=== PATIENT | female | born 2000 | race African-American/Black ===

== ENCOUNTER → 2019-07-29 | Outpatient (CLI) | payer OTHER ==
--- NOTE | 2019-07-29 09:23 | Diagnostic Imaging Report ---
PROCEDURE: MRI right joint lower extremity without contrast. TECHNIQUE: Multiplanar, multisequence non contrast-enhanced MRI of the right lower extremity was accomplished. INDICATION: Knee pain. COMPARISON: There are no prior studies available for comparison. FINDINGS: On the proton-density sagittal series, there is a thin band of increased signal extending through the posterior horn of the medial meniscus. This does not interrupt the articular surface of the meniscus and consequently is more likely due to degenerative disease and to meniscus tear. The lateral meniscus is intact. The anterior and posterior cruciate ligaments, quadriceps and infrapatellar tendons, the collateral ligaments, the iliotibial band and the biceps femoris tendon are intact. There is no sign of an injury to either the medial or lateral retinaculum. The knee joint itself is fairly well-maintained. There may be a very small osteochondral injury involving the subarticular region of the medial femoral condyle. There is no abnormal signal in this area to indicate bone edema and I suspect this finding is longstanding in nature. There is no evidence for a joint effusion. There is no sign of a Santacruz's cyst evident. IMPRESSION: 1. 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 The menisci are otherwise unremarkable. 2. The major ligaments and tendons are intact. 3. There is a question of a small osteochondral injury to the subarticular region of the medial femoral condyle. There is no evidence for bone edema in this area and the knee joint is fairly well-maintained. Dictated by: Dictated on workstation # [id number]
== END ==
LOC: RAD 08:11
PROVIDERS: ATTEND Orthopaedic Surgery
DX: M17.11 Unilateral primary osteoarthritis, right knee (principal); M23.321 Other meniscus derangements, posterior horn of medial meniscus, right knee
CPT/HCPCS: 73721